=== PATIENT | male | born 1985 | race Caucasian/White ===

== ENCOUNTER 2019-12-27 11:09 | Emergency (ER) | payer OTHER ==
[~2019-12-27] VITALS: Ht 167.6 cm; Wt 77.1 kg
[~2019-12-27 11:09] MED LIST: NAPROSYN375 MG PO; NOHOMEMEDICATIONS
[2019-12-27 11:17] VITALS: BP 134/77
--- NOTE | 2019-12-27 17:45 | EKG ---
[place] [address] ELECTROCARDIOGRAM REPORT Name: TERENCE THOMAS Room: [facility]#: [id number] Admission: 12/27/19 Attend Phys: Discharge: Date of : 85 Date of Service: 12/27/19 1116 Report #: [id number] THIS REPORT FOR: //name// [facility] ED Test Date: 2019-12-27 Test Time: 11:16:51 Pat Name: TERENCE THOMAS Department: Room: Gender: [employer]: : 1985 Requested By: Bogdan Hennessy Order Number: [id number] MD: Ernesto Melendez Measurements Intervals Ada Rate: 54 P: 65 MD: 188 QRS: 85 QRSD: 98 T: 43 QT: 397 QTc: 377 Interpretive Statements Sinus rhythm Delayed R wave progression Early repolarization Compared to ECG 04/25/2013 16:36:14 No significant changes noted Electronically Signed On 12-27-2019 17:45:13 CDT by Ernesto Melendez [email or web address] <ELECTRONICALLY SIGNED> By: Ernesto Melendez MD, [facility] 12/27/19 1745 15 15 Ernesto Melendez MD, [facility] /EPI
== END 2019-12-27 12:21 | disposition home or self-care (01) ==
LOC: M.ERS 11:09
DX: U07.1 COVID-19 (principal); R06.00 Dyspnea, unspecified; R42 Dizziness and giddiness